=== PATIENT | female | born 2000 | race Caucasian/White ===

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

== ENCOUNTER 2023-11-07 16:26 | Emergency (ER) | payer OTHER, SELFPAY ==
[2023-11-07] VITALS (16 sets, daily range): BP systolic 123–143; BP diastolic 63–83; PULSE 64–79; RESP 9–33; TEMP 37.6; O2SAT 97–100; BMI 23.6
--- NOTE | 2023-11-07 16:37 | DI.RAD.S_ITS ---
PROCEDURE: XR CHEST 1V INDICATIONS: chest pain TECHNIQUE: One view of the chest was acquired. COMPARISON: None. FINDINGS: Surgical changes and devices: None. Lungs and pleura: Lungs are clear. No pleural effusions or pneumothorax. Mediastinum: Mediastinal contours appear normal. Heart size is normal. Bones and chest wall: No suspicious bony lesions. Overlying soft tissues appear unremarkable. IMPRESSION: No acute cardiopulmonary abnormality is seen. Dictated by: Eugenia Mccarthy M.D. on 11/07/2023 at 17:08 Approved by: Eugenia Mccarthy M.D. on 11/07/2023 at 17:08
[2023-11-07 17:09] LABS: Prothrombin Time 11.9 SECONDS (9.4-12.5)
[2023-11-07 17:11] LABS: Add Manual Diff / Slide Review NO; Alanine Aminotransferase 19 IU/L (<35); Albumin 4.7 g/dL (3.5-5.0); Albumin Globulin Ratio 1.3 (1.0-2.8); Alkaline Phosphatase 44 U/L (38-126); Aspartate Aminotransferase 28 IU/L (14-36); BUN Creatinine Ratio 13.6 (6-22); Basophils Absolute Auto 0 /uL (0-100); Basophils Percent Auto 0.5 % (0-2); Bilirubin Total 0.4 mg/dL (0.2-1.3); Blood Urea Nitrogen 9 mg/dL (7-17); Calcium 9.8 mg/dL (8.4-10.2); Carbon Dioxide 26 mmol/L (22-32); Chloride 108 mmol/L (98-107); Creatine Kinase 97 U/L (30-135); Eosinophils Absolute Auto 500 /uL (0-450); Eosinophils Percent Auto 5.4 % (2-4); Estimated Glomerular Filt Rate > 60 mL/min (>60); Globulin 3.5 g/dL (1.7-4.1); Glucose 85 mg/dL (70-100); HEMOLYSIS < 15 (0-50); Hematocrit 38.8 % (36-46); Hemoglobin 13.1 g/dL (12.0-16.0); Lipase 131 U/L (23-300); Lymphocytes Absolute Auto 1500 /uL (1100-4500); Lymphocytes Percent Auto 16.8 % (25-40); Magnesium 2.1 mg/dL (1.6-2.3); Mean Corpuscular HGB Conc 33.8 % (30-36); Mean Corpuscular Hemoglobin 30.2 PG (26-34); Mean Corpuscular Volume 89.3 fL (80-100); Monocytes Absolute Auto 700 /uL (0-900); Monocytes Percent Auto 7.5 % (3-14); Neutrophils Absolute Auto 6400 /uL (1500-7000); Neutrophils Percent Auto 69.8 % (50-75); PTT Partial Thromboplastin Tim 33 SECONDS (25.1-36.5); Platelet Count 282 X10^3/uL (150-400); Potassium 4.1 mmol/L (3.4-5.1); Red Blood Cell Count 4.34 X10^6/uL (4.0-5.2); Red Cell Distribution Width 13.1 % (11.6-14.8); Sodium 142 mmol/L (137-145); Total Protein 8.2 g/dL (6.3-8.2); White Blood Cell Count 9.1 X10^3/uL (4.5-11.0)
[2023-11-07 17:23] LABS: Troponin I < 0.012 ng/mL (0.01-0.034)
[2023-11-07 19:55] LABS: Troponin I < 0.012 ng/mL (0.01-0.034)
--- NOTE | 2023-11-07 20:22 | ED_ITS ---
HPI - Chest Pain General Chief Complaint: Chest Pain Stated Complaint: chest pain Time Seen by Provider: 11/07/23 19:43 Source: patient and family Mode of arrival: Ambulatory Limitations: no limitations History of Present Illness HPI narrative: This is a 23-year-old female with a history of anxiety here with chest pain. She has left-sided chest pain radiating up into her left shoulder for 2-1/2 month. She does not recall any particular precipitating factor it is not associated with exertion. She is previously seen her primary care provider regarding this, he is prescribed propranolol she is taken a single 1/2 dose of this. There is also an order in for an ambulatory heart monitor which has not yet occurred. Patient does not have associated symptoms of nausea or diaphoresis with this. She says she is recently had her thyroid checked and were normal she is on oral contraceptives. No leg swelling or leg pain or prolonged immobilization. She is not had a cough or fever. Patient does not use recreational drugs uses alcohol sparingly she does not smoke. There is no family history of first-degree relatives with early heart disease although she has numerous second-degree relatives on her father's side who do have coronary disease. Related Data Allergies Allergy/AdvReac Type Severity Reaction Status Date / Time amoxicillin Allergy Verified 06/17/20 20:29 Patient History Social History Smoking Status: Current every day smoker Smoking Status: Current every day smoker tobacco type: vaping alcohol intake frequency: holidays/special occasions only Substance Use Type: does not use Exam Initial Vital Signs Initial Vital Signs: Vital Signs Temperature 99.6 F 11/07/23 16:28 Pulse Rate 65 11/07/23 16:28 Respiratory Rate 24 11/07/23 16:28 Blood Pressure 143/63 H 11/07/23 16:28 Pulse Oximetry 100 11/07/23 16:28 Oxygen Delivery Method Room Air 11/07/23 16:28 Const General: No in distress HENMT Head: normocephalic and atraumatic Neck Neck: supple Thyroid: other (No thyromegaly) Resp Effort & Inspection: normal respiratory effort Auscultation: clear to auscultation bilaterally Cardio Other: Regular rhythm rate no murmur rub or gallop Neuro Other: Alert and oriented speech is fluent moving all 4 extremities spontaneously and equally Psych Other: Not visibly anxious at present. Seems to have good insight and judgment. Not endorsing suicidal ideation Course Orders Ordered: ED Orders 11/07/23 16:37 XR chest 1V Stat EKG-12 Lead Stat 11/07/23 16:45 D Dimer Stat 11/07/23 16:56 Complete Blood Count AUTO DIFF Stat Comprehensive Metabolic Panel Stat Lipase Stat Magnesium Stat PTT Partial Thromboplastin Garry Stat Prothrombin Time INR Stat Troponin & CK Cardiac Panel Stat 11/07/23 18:27 Urine Culture Stat Urine Microscopic Stat 11/07/23 19:29 Trop I [Troponin I] Stat Vital Signs Vital signs: Vital Signs - 8 hr 11/07/23 16:28 11/07/23 17:38 11/07/23 17:39 Temperature 99.6 F Pulse Rate 65 71 Respiratory Rate 24 19 Blood Pressure 143/63 H 130/79 Pulse Oximetry 100 100 Oxygen Delivery Method Room Air 11/07/23 17:39 11/07/23 17:45 11/07/23 17:45 Temperature Pulse Rate 72 69 Respiratory Rate 17 25 H Blood Pressure 132/74 Pulse Oximetry 100 100 Oxygen Delivery Method 11/07/23 18:00 11/07/23 18:00 11/07/23 18:15 Temperature Pulse Rate 71 64 Respiratory Rate 21 Blood Pressure 123/74 Pulse Oximetry 100 100 Oxygen Delivery Method 11/07/23 18:15 11/07/23 18:32 11/07/23 19:00 Temperature Pulse Rate 78 68 Respiratory Rate 9 L 32 H Blood Pressure 128/75 Pulse Oximetry 98 100 Oxygen Delivery Method 11/07/23 19:11 11/07/23 19:11 11/07/23 19:30 Temperature Pulse Rate 73 66 Respiratory Rate 33 H 25 H Blood Pressure 129/78 Pulse Oximetry 100 100 Oxygen Delivery Method 11/07/23 19:30 11/07/23 19:57 11/07/23 19:57 Temperature Pulse Rate 75 Respiratory Rate 21 Blood Pressure 127/77 133/81 Pulse Oximetry 99 Oxygen Delivery Method 11/07/23 20:00 11/07/23 20:30 11/07/23 21:00 Temperature Pulse Rate 79 71 68 Respiratory Rate 23 26 H 20 Blood Pressure Pulse Oximetry 100 97 98 Oxygen Delivery Method 11/07/23 21:18 11/07/23 21:19 Temperature Pulse Rate 69 Respiratory Rate 25 H Blood Pressure 132/83 Pulse Oximetry 99 Oxygen Delivery Method MDM - Chest Pain Lab Data Lab results narrative: CBC and CMP are unremarkable, troponins are normal x2 D-dimer normal 11/07/23 16:56 11/07/23 16:56 Labs: Lab Results 11/07/23 11/07/23 11/07/23 Range/Units 16:45 16:56 19:29 WBC 9.1 (4.5-11.0) X10^3/uL RBC 4.34 (4.0-5.2) X10^6/uL Hgb 13.1 (12.0-16.0) g/dL Hct 38.8 (36-46) % MCV 89.3 (80-100) fL MCH 30.2 (26-34) PG MCHC 33.8 (30-36) % RDW 13.1 (11.6-14.8) % Plt Count 282 (150-400) X10^3/uL Neut % (Auto) 69.8 (50-75) % Lymph % (Auto) 16.8 L (25-40) % [place] % (Auto) 7.5 (3-14) % Eos % (Auto) 5.4 H (2-4) % Baso % (Auto) 0.5 (0-2) % Neut # (Auto) 6400 (8631-3292) /uL Lymph # (Auto) 1500 (0686-6313) /uL [place] # (Auto) 700 (0-900) /uL Eos # (Auto) 500 H (0-450) /uL Baso # (Auto) 0 (0-100) /uL PT 11.9 (9.4-12.5) SECONDS INR 1.0 (0.9-1.3) APTT 33 (25.1-36.5) SECONDS D-Dimer 364 (<500) ng/ml Sodium 142 (137-145) mmol/L Potassium 4.1 (3.4-5.1) mmol/L Chloride 108 H (98-107) mmol/L Carbon Dioxide 26 (22-32) mmol/L BUN 9 (7-17) mg/dL Creatinine 0.66 (0.52-1.04) mg/dL Estimated GFR > 60 (>60) mL/min BUN/Creatinine Ratio 13.6 (6-22) Glucose 85 (70-100) mg/dL Calcium 9.8 (8.4-10.2) mg/dL Magnesium 2.1 (1.6-2.3) mg/dL Total Bilirubin 0.4 (0.2-1.3) mg/dL AST 28 (14-36) IU/L ALT 19 (<35) IU/L Alkaline Phosphatase 44 (38-126) U/L Total Creatine Kinase 97 (30-135) U/L Troponin I < 0.012 < 0.012 (0.01-0.034) ng/mL Total Protein 8.2 (6.3-8.2) g/dL Albumin 4.7 (3.5-5.0) g/dL Globulin 3.5 (1.7-4.1) g/dL Albumin/Globulin Ratio 1.3 (1.0-2.8) Lipase 131 (23-300) U/L Point of Care Testing Test Results Negative Urine Dip Bedside Urine Glucose Negative Bedside Urine Bilirubin - Negative Bedside Urine Ketone - Negative Urine Specific [place] 1.010 Bedside Urine Occult Blood + Bedside Urine pH 6.0 Bedside Urine Protein - Negative Bedside Urine Urobilinogen - Negative Bedside Urine Nitrite - Negative Bedside Urine Leukocytes - Negative Esterase Imaging Data Chest x-ray: My Impression: Independently reviewed chest x-ray, no acute findings Radiologist's Impression: Radiologist reported no acute disease ECG Data Interpretation: EKG shows normal sinus rhythm at [address] segment changes no previous infarction normal axis MDM Narrative Medical decision making narrative: 23-year-old female with a history of anxiety presenting with over 2 months of intermittent left-sided chest pain. Is not exertional, she is on oral contraceptives but D-dimer is normal. Presentation does not suggest acute coronary syndrome. Presentation does not suggest musculoskeletal pain. No findings on chest x-ray I do not think this is pneumonia. She has an endorses history of anxiety, it may be related to this. Recommended she follow up with primary care, there was a prescription from her primary care provider for propranolol which I recommended that she use. Discharge Plan Departure Patient Disposition: Home Clinical Impression: Atypical chest pain Instructions: DI for Atypical Chest Pain Activity Restrictions/Additional Instructions: Emergency department evaluation today is reassuring. No serious cause for chest pain is found. I think it is safe for you to go home. I recommend using the propranolol prescribed by your primary care provider and following up with the ambulatory heart monitor as planned. If your symptoms are changing or getting worse, we would be glad to recheck in the emergency department. I definitely recommend following up soon with your primary care provider as well. Stand Alone Forms: Patient Portal/API
[2023-11-07 20:30] LABS: D Dimer 364 ng/ml (<500)
== END 2023-11-07 21:29 | disposition home or self-care (01) ==
PROVIDERS: Emergency Medicine; Emergency Provider Emergency Medicine
DX: R07.89 Other chest pain (principal)
CPT/HCPCS: 36415; 71045; 80053; 81003; 81025; 82550; 83690; 83735; 84484; 85025; 85379; 85610; 85730; 93005; 93010; 99283; 99284

== ENCOUNTER 2024-11-28 23:37 | Emergency (ER) | payer SELFPAY ==
[2024-11-28 23:44] VITALS: BP 139/81; PULSE 93; RESP 18; TEMP 37.2; O2SAT 98; BMI 23.6
--- NOTE | 2024-11-29 00:08 | ED_ITS ---
HPI - General Adult General Chief complaint: Abdominal Pain Stated complaint: tailbone pain, painful stool Time Seen by Provider: 11/28/24 23:51 Source: patient Mode of arrival: Ambulatory History of Present Illness HPI narrative: Patient was a 24-year-old female here for evaluation of lower back discomfort and painful bowel movements. She states that she initially started having symptoms a couple days ago. No urinary symptoms. No vaginal bleeding. No prior abdominal surgeries. She states he can not remember when her last bowel movement was. She did have a small bowel movement earlier today but it was very small and hard. No vomiting. No fevers. Related Data Allergies Allergy/AdvReac Type Severity Reaction Status Date / Time amoxicillin Allergy Verified 06/17/20 20:29 Review of Systems Review of Systems ROS Unobtainable: All systems reviewed & are unremarkable except as noted in HPI and below Patient History Social History Smoking Status: Current every day smoker Smoking Status: Current every day smoker tobacco type: vaping alcohol intake frequency: holidays/special occasions only Exam Initial Vital Signs Initial Vital Signs: Vital Signs Temperature 99.0 F 11/28/24 23:44 Pulse Rate 93 H 11/28/24 23:44 Respiratory Rate 18 11/28/24 23:44 Blood Pressure 139/81 11/28/24 23:44 Pulse Oximetry 98 11/28/24 23:44 Oxygen Delivery Method Room Air 11/28/24 23:44 Const General: well developed and No ill appearing HENMT Head: normal to inspection and normocephalic GI Inspection: normal to inspection and non-distended Palpation: soft Back/Spine/Pelvis Thoracic/Lumbar Spine: No paraspinal tenderness, No thoracic spinal tenderness and No lumbar spinal tenderness Neuro General: patient alert and moves all extremities Course Orders Ordered: ED Orders 11/29/24 00:08 XR abdomen 1V Stat 11/29/24 01:08 Urine Microscopic Stat Vital Signs Vital signs: Vital Signs - 8 hr 11/28/24 23:44 Temperature 99.0 F Pulse Rate 93 H Respiratory Rate 18 Blood Pressure 139/81 Pulse Oximetry 98 Oxygen Delivery Method Room Air Medical Decision Making Lab Data Lab results reviewed: Yes I reviewed the patient's lab results. Labs: Lab Results 11/29/24 Range/Units 01:08 Urine RBC 0-1/hpf (0-5/HPF) Urine WBC None seen (0-5/HPF) Ur Squamous Epith Cells 1-5 /hpf (0-5/HPF) Urine Bacteria None seen (None) Ur Culture Indicated? Cult not indicated Vol Urine Centrifuged 10ml (spun) Point of Care Testing Test Results Negative Urine Dip Bedside Urine Glucose Negative Bedside Urine Bilirubin - Negative Bedside Urine Ketone - Negative Urine Specific [place] 1.015 Bedside Urine Occult Blood + Bedside Urine pH 6.0 Bedside Urine Protein - Negative Bedside Urine Urobilinogen - Negative Bedside Urine Nitrite - Negative Bedside Urine Leukocytes - Negative Esterase Point of care testing: Point of Care Testing Test Results Negative Urine Dip Bedside Urine Glucose Negative Bedside Urine Bilirubin - Negative Bedside Urine Ketone - Negative Urine Specific [place] 1.015 Bedside Urine Occult Blood + Bedside Urine pH 6.0 Bedside Urine Protein - Negative Bedside Urine Urobilinogen - Negative Bedside Urine Nitrite - Negative Bedside Urine Leukocytes - Negative Esterase Imaging Data Abdominal x-ray: Radiologist's Impression: PROCEDURE: XR ABDOMEN 1V INDICATIONS: abd pain possible constipation TECHNIQUE: One view of the abdomen acquired. COMPARISON: None. FINDINGS: Surgical changes and devices: None. Bowel: Bowel gas pattern is nonobstructive. Soft tissues: No suspicious abdominal calcifications. Visualized solid organ contours appear normal in size. Bones: No suspicious bony lesions. IMPRESSION: Nonobstructive bowel gas pattern. MDM Narrative Medical decision making narrative: Well-appearing. Benign exam. test negative. Low suspicion that this is musculoskeletal. Abdominal x-ray does show quite a bit of stool down in the pelvis. I suspect that she was constipated in the lower back pain has because of this. I think we can hold on further imaging studies such as an MRI for now. We discussed the use of laxatives. Patient was given return precautions and follow-up instructions. She expressed understanding and agreement with the plan. Discharge Plan Departure Patient Disposition: Home Clinical Impression: Constipation, Low back pain Instructions: DI for Constipation Activity Restrictions/Additional Instructions: I do recommend that you start taking a laxative like we discussed. Contact your primary doctor for a follow-up. Return to the emergency department for new symptoms. Stand Alone Forms: Patient Portal/API/Survey
[2024-11-29 01:43] LABS: Bacteria Urine None Seen; Culture Indicated Urine Cult Not Indicated; RBC Urine 0-1/HPF (0-5/HPF); Squamous Epithelial Cell Urine 1-5 /HPF (0-5/HPF); Urine Volume 10mL (spun); WBC Urine None Seen (0-5/HPF)
[2024-11-29 01:51] VITALS: BP 137/74; PULSE 77; RESP 15; O2SAT 100
== END 2024-11-29 01:52 | disposition home or self-care (01) ==
PROVIDERS: Emergency Provider Emergency Medicine
DX: K59.00 Constipation, unspecified (principal); M54.50 Low back pain, unspecified
CPT/HCPCS: 74018; 81003; 81015; 81025; 99283

== ENCOUNTER 2024-12-05 16:11 | Emergency (ER) | payer SELFPAY ==
[2024-12-05 16:28] VITALS: BP 128/79; PULSE 90; RESP 18; TEMP 37.3; O2SAT 100; BMI 24.3
--- NOTE | 2024-12-05 16:51 | ED_ITS ---
HPI - Abdominal Pain <Gela Vogel PA-C - Last Filed: 12/05/24 19:07> General Chief Complaint: Abdominal Pain Stated Complaint: rt side back px, compacted stools Time Seen by Provider: 12/05/24 16:47 Source: patient and family Mode of arrival: Ambulatory History of Present Illness HPI narrative: Ms. Kamara is a pleasant 24-year-old female with a past medical history of PCOS and occasional tachycardia who presents to the emergency department for almost 2 weeks of constipation, painful bowel movement and right flank pain. Patient states she is come to both the emergency room in the walk-in clinic previously over this last week for the same complaint and has been trying all of the recommended regimens without improvement in her symptoms. States that in the last 2 weeks she is only passed very small bowel movements however prior abdominal x-rays revealed large amounts of stool. States that occasionally she has severe pain when having a bowel movement both in her abdomen, back and rectum. She has been trying MiraLax, Dulcolax, prune juice, magnesium citrate with no success. Reports Friday evening she passed a very small amount of diarrhea and that was the last bowel movement. She has been primarily only drinking liquids however yesterday she attempted to eat a full solid meal and immediately threw it up. She has no longer having nausea but she does continue to have right flank pain and constipation. She denies fevers, chills, chest pain, shortness of breath, cough, dysuria, vaginal discharge, vaginal bleeding. No medications today except for daily control. No medication allergies. She is accompanied by her mother who contributes to the history. Related Data Allergies Allergy/AdvReac Type Severity Reaction Status Date / Time amoxicillin Allergy Verified 06/17/20 20:29 Review of Systems <Gela Vogel PA-C - Last Filed: 12/05/24 19:07> Review of Systems ROS Unobtainable: All systems reviewed & are unremarkable except as noted in HPI and below Patient History <Gela Vogel PA-C - Last Filed: 12/05/24 19:07> Social History Smoking Status: Current every day smoker Smoking Status: Current every day smoker tobacco type: vaping alcohol intake frequency: holidays/special occasions only Exam <YORDY Ray Last Filed: 12/05/24 19:07> Narrative Exam Narrative: GENERAL: 24 year old patient appears stated age. Well-developed patient, in no acute distress. HEAD: Atraumatic. Normocephalic. NECK: Trachea midline. Cervical ROM intact. CARDIOVASCULAR: Regular rate and rhythm. RESPIRATORY: ?Nonlabored respirations. ?Speaking in clear, full sentences. ?Clear to auscultation. Breath sounds equal bilaterally. No wheezes, rales, or rhonchi. ? GASTROINTESTINAL: Subjective tenderness to deep palpation in the left lower quadrant of the abdomen with no rebound or guarding. Normal bowel sounds. Abdomen is soft and nondistended. BACK: Subjective back pain is in the right CVA region however there is no CVA tenderness or other back or spinal tenderness. NEURO: AOx3. ?Clear speech. ?Moves all 4 extremities appropriately. SKIN: No rash or erythema of visible areas Initial Vital Signs Initial Vital Signs: Vital Signs Temperature 99.1 F 12/05/24 16:28 Pulse Rate 90 12/05/24 16:28 Respiratory Rate 18 12/05/24 16:28 Blood Pressure 128/79 12/05/24 16:28 Pulse Oximetry 100 12/05/24 16:28 Oxygen Delivery Method Room Air 12/05/24 16:28 <Rubia Sutton DO - Last Filed: 12/06/24 08:21> Initial Vital Signs Initial Vital Signs: Vital Signs Temperature 99.1 F 12/05/24 16:28 Pulse Rate 90 12/05/24 16:28 Respiratory Rate 18 12/05/24 16:28 Blood Pressure 128/79 12/05/24 16:28 Pulse Oximetry 100 12/05/24 16:28 Oxygen Delivery Method Room Air 12/05/24 16:28 Course <YORDY Ray Last Filed: 12/05/24 19:07> Orders Ordered: Discontinued Medications Sodium Chloride (Normal Saline 0.9%) 1,000 mls @ 1,000 mls/hr IV BOLUS ONE Stop: 12/05/24 18:03 Last Admin: 12/05/24 17:51 Dose: 1,000 mls/hr Documented By: FRANNIE Vital Signs Vital signs: Vital Signs - 8 hr 12/05/24 16:28 Temperature 99.1 F Pulse Rate 90 Respiratory Rate 18 Blood Pressure 128/79 Pulse Oximetry 100 Oxygen Delivery Method Room Air <Rubia Sutton DO - Last Filed: 12/06/24 08:21> Orders Ordered: Discontinued Medications Sodium Chloride (Normal Saline 0.9%) 1,000 mls @ 1,000 mls/hr IV BOLUS ONE Stop: 12/05/24 18:03 Last Admin: 12/05/24 17:51 Dose: 1,000 mls/hr Documented By: FRANNIE Vital Signs Vital signs: Vital Signs - 8 hr 12/05/24 16:28 Temperature 99.1 F Pulse Rate 90 Respiratory Rate 18 Blood Pressure 128/79 Pulse Oximetry 100 Oxygen Delivery Method Room Air MDM - Abdominal Pain <Gela Vogel PA-C - Last Filed: 12/05/24 19:07> Medical Records Attestation: I reviewed the patient's medical records. Lab Data 12/05/24 17:09 12/05/24 17:09 Labs: Lab Results 12/05/24 Range/Units 17:09 WBC 9.1 (4.5-11.0) X10^3/uL RBC 4.92 (4.0-5.2) X10^6/uL Hgb 14.7 (12.0-16.0) g/dL Hct 43.2 (36-46) % MCV 87.9 (80-100) fL MCH 30.0 (26-34) PG MCHC 34.1 (30-36) % RDW 13.4 (11.6-14.8) % Plt Count 331 (150-400) X10^3/uL Neut % (Auto) 67.7 (50-75) % Lymph % (Auto) 20.3 L (25-40) % [place] % (Auto) 6.2 (3-14) % Eos % (Auto) 5.5 H (2-4) % Baso % (Auto) 0.3 (0-2) % Neut # (Auto) 6200 (8533-3685) /uL Lymph # (Auto) 1900 (8906-5052) /uL [place] # (Auto) 600 (0-900) /uL Eos # (Auto) 500 H (0-450) /uL Baso # (Auto) 0 (0-100) /uL Sodium 141 (137-145) mmol/L Potassium 4.0 (3.4-5.1) mmol/L Chloride 106 (98-107) mmol/L Carbon Dioxide 22 (22-32) mmol/L BUN 6 L (7-17) mg/dL Creatinine 0.86 (0.52-1.04) mg/dL Estimated GFR > 60 (>60) mL/min BUN/Creatinine Ratio 7.0 (6-22) Glucose 91 (70-100) mg/dL Calcium 9.8 (8.4-10.2) mg/dL Total Bilirubin 0.5 (0.2-1.3) mg/dL AST 30 (14-36) IU/L ALT 21 (<35) IU/L Alkaline Phosphatase 57 (38-126) U/L Total Protein 9.4 H (6.3-8.2) g/dL Albumin 5.2 H (3.5-5.0) g/dL Globulin 4.2 H (1.7-4.1) g/dL Albumin/Globulin Ratio 1.2 (1.0-2.8) Lipase 121 (23-300) U/L Urine RBC 0-1/hpf (0-5/HPF) Urine WBC 0-1/hpf (0-5/HPF) Ur Squamous Epith Cells None seen (0-5/HPF) Urine Bacteria None seen (None) Ur Culture Indicated? Cult not indicated Vol Urine Centrifuged 10ml (spun) Point of care testing: Point of Care Testing Test Results Negative Urine Dip Bedside Urine Glucose Negative Bedside Urine Bilirubin - Negative Bedside Urine Ketone - Negative Urine Specific [place] 1.015 Bedside Urine Occult Blood ++ Bedside Urine pH 8.5 Bedside Urine Protein - Negative Bedside Urine Urobilinogen - Negative Bedside Urine Nitrite - Negative Bedside Urine Leukocytes +/- [address] scan - abdomen/pelvis: Radiologist's Impression: PROCEDURE: CT ABDOMEN PELVIS W CON INDICATIONS: Right Flank Pain; Constipation; N/V TECHNIQUE: After the administration of intravenous contrast, axial sections acquired from the lung bases to the pubic symphysis. Coronal and sagittal reformats were performed. For radiation dose reduction, the following was used: automated exposure control, adjustment of mA and/or kV according to patient size. COMPARISON: None. FINDINGS: Image quality: Diagnostic. Lower Chest: No significant findings. ABDOMEN: Liver: No solid mass. Gallbladder: No radiopaque gallstones or wall thickening. Biliary ducts: No biliary dilation. Pancreas: No ductal dilation. Spleen: Size is within normal limits. Adrenal Glands: No adrenal nodules. Kidneys and Ureters: No hydronephrosis. No solid mass. No complex renal cystic lesion which requires follow up. Stomach and Bowel: Normal colonic caliber, without significant wall thickening. Stool burden is moderate within the right colon and minimal within the left colon. Peritoneum: No abnormal intraperitoneal fluid. No free air. Ventral Wall: No significant ventral hernia. Abdominal Nodes: No retroperitoneal or mesenteric adenopathy by size criteria. Vessels: Aorta and inferior vena cava are normal in size. PELVIS: Pelvic Organs: Unremarkable. Bladder: No bladder wall thickening, accounting for underdistention. Pelvic Nodes: No enlarged lymph nodes. Miscellaneous: No inguinal hernias are seen. Bones: No aggressive osseous abnormality. IMPRESSION: No CT evidence for the etiology of the patient's symptoms. Specifically, no urolithiasis, appendicitis, diverticulitis, or obstruction. MDM Narrative Medical decision making narrative: 24-year-old female with a past medical history of PCOS and occasional tachycardia who presents to the emergency department for almost 2 weeks of constipation, painful bowel movement and right flank pain. Differential diagnosis includes but is not limited to UTI, pyelonephritis, constipation, bowel obstruction, irritable bowel syndrome, IBD, ovarian cyst, uterine fibroid, etc. etc. On exam the patient is in no acute distress, nontoxic-appearing, all vital signs within normal limits. Abdominal exam reveals soft, nondistended abdomen with some subjective tenderness in the left lower quadrant but no rebound or guarding. This is the patient's 3rd visit for constipation and back pain in the last week. On 11/29/2024 the patient had normal UA, benign exam, negative test abdominal x-ray with nonobstructive pattern. Patient was recommended laxatives which she has been taking with no improvement in her symptoms. She has since had an episode of vomiting. Due to the duration of patient's symptoms, left lower quadrant tenderness, we will proceed with CBC, CMP, lipase, IV fluids and CT abdomen and pelvis with IV contrast for further evaluation. Patient declines need for pain or nausea medication at this time. test negative. Normal WBC count 9.1. Normal hemoglobin 14.7, hematocrit 43.2. Platelets 331. Sodium 141, potassium 4.0, BUN 6, creatinine 0.86. AST 30, ALT 21, alk phos 57. Patient has very slight elevations of albumin at 5.2, globulin at 4.2, total protein at 9.4. Lipase normal 121. CTAP reveals moderate stool burden within the right colon. No urolithiasis, appendicitis, diverticulitis or obstruction. I printed the imaging results and discussed them with the patient and mother at bedside. Patient is very reassured by her imaging findings. We discussed that constipation can be related numerous different factors and we discussed dietary changes, laxatives, MiraLax, hydration, exercise. Recommended follow up with PCP for further management of constipation in addition to recheck of labs. Discussed ER return precautions. Patient and her mom verbalized understanding of all information and are happy with the plan. Abdominal exam is benign at this time with no reproducible tenderness, continues to be soft, tolerating PO. She is stable for discharge home. <Rubia Sutton, DO - Last Filed: 12/06/24 08:21> Lab Data Labs: Lab Results 12/05/24 Range/Units 17:09 WBC 9.1 (4.5-11.0) X10^3/uL RBC 4.92 (4.0-5.2) X10^6/uL Hgb 14.7 (12.0-16.0) g/dL Hct 43.2 (36-46) % MCV 87.9 (80-100) fL MCH 30.0 (26-34) PG MCHC 34.1 (30-36) % RDW 13.4 (11.6-14.8) % Plt Count 331 (150-400) X10^3/uL Neut % (Auto) 67.7 (50-75) % Lymph % (Auto) 20.3 L (25-40) % [place] % (Auto) 6.2 (3-14) % Eos % (Auto) 5.5 H (2-4) % Baso % (Auto) 0.3 (0-2) % Neut # (Auto) 6200 (5683-8200) /uL Lymph # (Auto) 1900 (5647-4171) /uL [place] # (Auto) 600 (0-900) /uL Eos # (Auto) 500 H (0-450) /uL Baso # (Auto) 0 (0-100) /uL Sodium 141 (137-145) mmol/L Potassium 4.0 (3.4-5.1) mmol/L Chloride 106 (98-107) mmol/L Carbon Dioxide 22 (22-32) mmol/L BUN 6 L (7-17) mg/dL Creatinine 0.86 (0.52-1.04) mg/dL Estimated GFR > 60 (>60) mL/min BUN/Creatinine Ratio 7.0 (6-22) Glucose 91 (70-100) mg/dL Calcium 9.8 (8.4-10.2) mg/dL Total Bilirubin 0.5 (0.2-1.3) mg/dL AST 30 (14-36) IU/L ALT 21 (<35) IU/L Alkaline Phosphatase 57 (38-126) U/L Total Protein 9.4 H (6.3-8.2) g/dL Albumin 5.2 H (3.5-5.0) g/dL Globulin 4.2 H (1.7-4.1) g/dL Albumin/Globulin Ratio 1.2 (1.0-2.8) Lipase 121 (23-300) U/L Urine RBC 0-1/hpf (0-5/HPF) Urine WBC 0-1/hpf (0-5/HPF) Ur Squamous Epith Cells None seen (0-5/HPF) Urine Bacteria None seen (None) Ur Culture Indicated? Cult not indicated Vol Urine Centrifuged 10ml (spun) Point of care testing: Point of Care Testing Test Results Negative Urine Dip Bedside Urine Glucose Negative Bedside Urine Bilirubin - Negative Bedside Urine Ketone - Negative Urine Specific [place] 1.015 Bedside Urine Occult Blood ++ Bedside Urine pH 8.5 Bedside Urine Protein - Negative Bedside Urine Urobilinogen - Negative Bedside Urine Nitrite - Negative Bedside Urine Leukocytes +/- 15 Esterase Discharge Plan Departure Patient Disposition: Home Clinical Impression: Right flank pain Constipation Qualifiers: Constipation type: unspecified constipation type Qualified Code(s): K59.00 - Constipation, unspecified Instructions: DI for Constipation Activity Restrictions/Additional Instructions: Dear Ms. Kamara, Thank you for coming into the emergency department today for evaluation. Today we completed a workup for right flank pain in addition to constipation. Overall your lab work was very reassuring with normal kidney function, normal white blood cell count, no urinary tract infection. Your labs did display very slight elevations of albumin and globulin which I recommend you follow up with your primary care doctor for for repeat lab work. A CT scan of your abdomen and pelvis showed a moderate amount of stool within the right colon. Otherwise the remainder of the CT scan was normal and reassuring. Please follow up with the primary care doctor for further evaluation of your symptoms. Please drink warm tea with MiraLax in the mornings, exercise, stretch, continue using other laxatives likely discussed. Once you are having more regular bowel movements you may try incorporating Benefiber into the diet to help prevent future constipation. It is also important to make sure you are hydrating plenty with water or electrolyte beverages as dehydration can contribute to constipation as well. For pain, please use medication if needed. Please take Ibuprofen (Motrin/Advil) or Acetaminophen (Tylenol) for pain. These are available over the counter. You may take Ibuprofen 600 mg every 8 hours with food for pain. You may also take Acetaminophen 650 mg every 4-6 hours for pain. Do not exceed 3000 mg of Tylenol a day as this can cause liver damage. Do not drink alcohol with either of these medications. We do not have a dedicated gastrointestinal doctor here at [facility] however [facility] does have a gastroenterology center which you can call and make an appointment with at [phone]. Please follow up with your primary care doctor within the next 2-3 days for ER follow-up. (If you do not have a PCP you can call [phone]. ?to schedule an appointment with an [facility] Primary Care Provider) IF YOU DEVELOP ANY NEW OR WORSENING SYMPTOMS, RETURN TO THE ER! Please read the attached instructions, they highlight more specific treatments and interventions for you at home. Thank you for letting me participate in your care, Gela Vogel PA-C Referrals: Miscellaneous,Doctor, [Primary Care Provider] - Stand Alone Forms: Patient Portal/API/Survey ED Sign-out <Rubia Sutton DO - Last Filed: 12/06/24 08:21> Cosign ED Attending Roseannature Attestation: Insert mental
--- NOTE | 2024-12-05 17:05 | DI.CT.S_ITS ---
PROCEDURE: CT ABDOMEN PELVIS W CON INDICATIONS: Right Flank Pain; Constipation; N/V TECHNIQUE: After the administration of intravenous contrast, axial sections acquired from the lung bases to the pubic symphysis. Coronal and sagittal reformats were performed. For radiation dose reduction, the following was used: automated exposure control, adjustment of mA and/or kV according to patient size. COMPARISON: None. FINDINGS: Image quality: Diagnostic. Lower Chest: No significant findings. ABDOMEN: Liver: No solid mass. Gallbladder: No radiopaque gallstones or wall thickening. Biliary ducts: No biliary dilation. Pancreas: No ductal dilation. Spleen: Size is within normal limits. Adrenal Glands: No adrenal nodules. Kidneys and Ureters: No hydronephrosis. No solid mass. No complex renal cystic lesion which requires follow up. Stomach and Bowel: Normal colonic caliber, without significant wall thickening. Stool burden is moderate within the right colon and minimal within the left colon. Peritoneum: No abnormal intraperitoneal fluid. No free air. Ventral Wall: No significant ventral hernia. Abdominal Nodes: No retroperitoneal or mesenteric adenopathy by size criteria. Vessels: Aorta and inferior vena cava are normal in size. PELVIS: Pelvic Organs: Unremarkable. Bladder: No bladder wall thickening, accounting for underdistention. Pelvic Nodes: No enlarged lymph nodes. Miscellaneous: No inguinal hernias are seen. Bones: No aggressive osseous abnormality. IMPRESSION: No CT evidence for the etiology of the patient's symptoms. Specifically, no urolithiasis, appendicitis, diverticulitis, or obstruction. Dictated by: Lyn Bejarano M.D. on 12/05/2024 at 17:15 Approved by: Lyn Bejarano M.D. on 12/05/2024 at 17:23
[2024-12-05 17:33] LABS: Add Manual Diff / Slide Review NO; Basophils Absolute Auto 0 /uL (0-100); Basophils Percent Auto 0.3 % (0-2); Eosinophils Absolute Auto 500 /uL (0-450); Eosinophils Percent Auto 5.5 % (2-4); Hematocrit 43.2 % (36-46); Hemoglobin 14.7 g/dL (12.0-16.0); Lymphocytes Absolute Auto 1900 /uL (1100-4500); Lymphocytes Percent Auto 20.3 % (25-40); Mean Corpuscular HGB Conc 34.1 % (30-36); Mean Corpuscular Volume 87.9 fL (80-100); Monocytes Absolute Auto 600 /uL (0-900); Monocytes Percent Auto 6.2 % (3-14); Neutrophils Absolute Auto 6200 /uL (1500-7000); Neutrophils Percent Auto 67.7 % (50-75); Platelet Count 331 X10^3/uL (150-400); Red Blood Cell Count 4.92 X10^6/uL (4.0-5.2); Red Cell Distribution Width 13.4 % (11.6-14.8); White Blood Cell Count 9.1 X10^3/uL (4.5-11.0)
[2024-12-05 17:40] LABS: Alanine Aminotransferase 21 IU/L (<35); Albumin 5.2 g/dL (3.5-5.0); Albumin Globulin Ratio 1.2 (1.0-2.8); Alkaline Phosphatase 57 U/L (38-126); Aspartate Aminotransferase 30 IU/L (14-36); Bilirubin Total 0.5 mg/dL (0.2-1.3); Blood Urea Nitrogen 6 mg/dL (7-17); Calcium 9.8 mg/dL (8.4-10.2); Carbon Dioxide 22 mmol/L (22-32); Chloride 106 mmol/L (98-107); Estimated Glomerular Filt Rate > 60 mL/min (>60); Globulin 4.2 g/dL (1.7-4.1); Glucose 91 mg/dL (70-100); HEMOLYSIS 15 (0-50); Lipase 121 U/L (23-300); Sodium 141 mmol/L (137-145); Total Protein 9.4 g/dL (6.3-8.2)
[2024-12-05] MEDS: SODIUM CHLORIDE 0.9% 1,000 ML 1000 ML IV (17:51)
[2024-12-05 18:10] LABS: Bacteria Urine None Seen; Squamous Epithelial Cell Urine None Seen (0-5/HPF); Urine Volume 10mL (spun); WBC Urine 0-1/HPF (0-5/HPF)
[2024-12-05 18:11] LABS: Culture Indicated Urine Cult Not Indicated; RBC Urine 0-1/HPF (0-5/HPF)
[2024-12-05 19:08] VITALS: BP 126/70; PULSE 70; RESP 16; O2SAT 100
== END 2024-12-05 19:10 | disposition home or self-care (01) ==
PROVIDERS: Emergency Provider Physician Assistant
DX: R10.9 Unspecified abdominal pain (principal); K59.00 Constipation, unspecified
CPT/HCPCS: 36415; 74177; 80053; 81003; 81015; 81025; 83690; 85025; 96360; 99284; Q9967